=== PATIENT | female | born 1945 | race Caucasian/White ===

== ENCOUNTER 2016-12-24 11:57 | Emergency (ER) | payer OTHER, MEDICARE, BC ==
[~2016-12-24 11:57] MED LIST: ALTA2.5 PO; AMB5 PO; ATEN25 PO; BUM1 PO; CORDARONE PO; COREG3 PO; COREG6 PO; JANTOVEN4 MG PO; JANTOVEN5 MG PO; KLOR-CON M2020 MEQ PO; L40 PO; LAN125 PO; LIPITOR40 PO; P125 PO; PLAVIX PO; PROTONIX PO; VICODINTAB PO; VOLTAREN1 % TOP; [UNRECOGNIZED DRUG - OTHER] PO; [UNRECOGNIZED DRUG - REMARK]
[2016-12-24 15:02] LABS: BASOPHILS 0.2 %; BASOPHILS ABSOLUTE 0.02 10/3/uL (0.0-0.16); EOSINOPHILS 1.4 %; EOSINOPHILS ABSOLUTE 0.13 10/3/uL (0.0-0.53); HEMATOCRIT 39.8 % (36.0-48.0); HEMOGLOBIN 13.5 g/dL (12.0-16.0); IMMATURE GRANULOCYTES 0.2 %; IMMATURE GRANULOCYTES ABSOLUTE 0.02 10/3/uL (0.0-0.11); LYMPHOCYTES 15.4 %; LYMPHOCYTES ABSOLUTE 1.42 10/3/uL (0.67-4.30); MEAN CORPUS HGB CONC 33.9 g/dL (32.0-36.0); MEAN CORPUSCULAR HEMOGLOB 30.2 pg (26.0-34.0); MONOCYTES 6.2 %; MONOCYTES ABSOLUTE 0.57 10/3/uL (0.21-1.20); NEUTROPHILS 76.6 %; NEUTROPHILS ABSOLUTE 7.07 10/3/uL (2.02-8.40); PLATELET COUNT 200 10/3/uL (150-400); RBC DISTRIBUTION WIDTH 14.7 % (12.0-16.0); RED CELL COUNT 4.47 10/6/uL (4.0-5.6)
[2016-12-24 15:03] LABS: MANUAL DIFF NO %; WHITE BLOOD CELLS 9.2 10/3/uL (4.5-10.5)
[2016-12-24 15:10] LABS: INTERNATIONAL NORMAL RATI 2.1 UNITS (-); PARTIAL THROMBO TIME 35.4 SEC (22.5-37.2)
[2016-12-24 15:14] LABS: PROTIME (NOT ORD) 23.1 SEC (12.0-14.5)
[2016-12-24 15:19] LABS: A/G RATIO 1.1 (0.7-1.9); ALKALINE PHOSPHATASE 132 U/L (45-117); BUN (BLOOD UREA NITROGEN) 21 MG/DL (6-23); CHLORIDE, SERUM 114 MMOL/L (96-112); CO2 (CARBON DIOXIDE) 23 MMOL/L (24-34); CREATININE 1.04 MG/DL (0.55-1.02); GFR AFRICAN AMERICAN 62 ML/MIN (>=60); GFR NON AFRICAN AMERICAN 53 ML/MIN (>=60); GLOBULIN 3.6 G/DL (2.5-4.1); GLUCOSE, SERUM 86 MG/DL (60-99); POTASSIUM, SERUM 4.2 MMOL/L (3.5-5.3); SGPT(ALT) 22 U/L (5-65); SODIUM, SERUM 144 MMOL/L (135-148); TOTAL BILIRUBIN 0.4 MG/DL (0-1.2); TOTAL PROTEIN 7.6 G/DL (6.0-8.5)
[2016-12-24 15:22] LABS: SGOT(AST) 26 U/L (5-40)
[2016-12-24] MEDS ORDERED: PLAVIX PO (15:29)
[2016-12-24] MEDS ORDERED: LIPITOR40 PO (15:29)
[2016-12-24] MEDS ORDERED: COREG6 PO (15:29)
[2016-12-24] MEDS ORDERED: PROTONIX PO (15:29)
[2016-12-24] MEDS ORDERED: JANTOVEN1 MG PO (15:30)
[2016-12-24] MEDS ORDERED: KLOR-CON M2020 MEQ PO (15:30)
[2016-12-24] MEDS ORDERED: BUM1 PO (15:31)
== END 2016-12-24 16:09 | disposition short-term general hospital (02) ==
LOC: ER 11:57
PROVIDERS: Emergency Medicine
DX: S06.5X0A Traumatic subdural hemorrhage without loss of consciousness, initial encounter (principal); S00.83XA Contusion of other part of head, initial encounter; S70.01XA Contusion of right hip, initial encounter; S50.01XA Contusion of right elbow, initial encounter; K21.9 Gastro-esophageal reflux disease without esophagitis; I25.2 Old myocardial infarction; I10 Essential (primary) hypertension; Z95.810 Presence of automatic (implantable) cardiac defibrillator; I25.10 Atherosclerotic heart disease of native coronary artery without angina pectoris; Z88.5 Allergy status to narcotic agent; Z88.8 Allergy status to other drugs, medicaments and biological substances; Z79.899 Other long term (current) drug therapy; Z79.01 Long term (current) use of anticoagulants; W19.XXXA Unspecified fall, initial encounter
CPT/HCPCS: 70450; 72125; 73552-RT; 80053; 85025; 85610; 85730; 99285